=== PATIENT | male | born 1990 | race African-American/Black ===

== ENCOUNTER 2018-12-22 16:59 | Emergency (ER) | payer OTHER ==
[2018-12-22] MEDS ORDERED: Ibuprofen TAB* 600 MG PO ONE (20:37)
--- NOTE | 2018-12-22 20:37 | ED ---
Throat Pain/Nasal Congestion - HPI Summary HPI Summary: 28-year-old male presents with jaw pain today. He states he fell off his top bunk. He denies any loss consciousness. No neck pain. No loose teeth. He was able to eat but is having pain. States it hurts over his TMJ. Denies any nosebleed. No other trauma. Has no medical conditions. He states his bite feels little bit different. - History of Current Complaint Chief Complaint: EDFacialInjury Time Seen by Provider: 12/22/18 19:52 - Allergies/Home Medications Allergies/Adverse Reactions: Allergies Allergy/AdvReac Type Severity Reaction Status Date / Time No Known Allergies Allergy Verified 12/22/18 20:22 Home Medications: Home Medications NK [No Home Medications Reported] 12/22/18 [History Confirmed 12/22/18] PMH/Surg Hx/FS Hx/Imm Hx Endocrine/Hematology History: Denies: Hx Anticoagulant Therapy Respiratory History: Denies: Hx Asthma Infectious Disease History: No Infectious Disease History: Denies: Traveled Outside the [place] in Last 30 Days - Family History Known Family History: Positive: Non-Contributory - Social History Alcohol Use: Daily Substance Use Type: Reports: Marijuana Smoking Status (MU): Light Every Day Tobacco Smoker Review of Systems Negative: Fever Positive: Other - jaw pain Negative: Chest Pain Negative: Shortness Of Breath All Other Systems Reviewed And Are Negative: Yes Physical Exam Triage Information Reviewed: Yes Vital Signs On Initial Exam: Initial Vitals Temp Pulse Resp BP Pulse Ox 98.5 F 48 16 121/81 98 12/22/18 17:04 12/22/18 17:04 12/22/18 17:04 12/22/18 17:04 12/22/18 17:04 Vital Signs Reviewed: Yes Appearance: Positive: Well-Appearing Skin: Positive: Warm, Dry Head/Face: Positive: Normal Head/Face Inspection Eyes: Positive: Normal, EOMI, REI, Conjunctiva Clear ENT: Positive: Normal ENT inspection, Pharynx normal, TMs normal, Other - tenderness over left TMJ and lower jaw Dental: Positive: Other - no loose teeth. Negative: Percussion Tenderness @ Respiratory/Lung Sounds: Positive: Clear to Auscultation, Breath Sounds Present Cardiovascular: Positive: Normal, RRR Abdomen Description: Positive: Nontender, Soft Bowel Sounds: Positive: Present Musculoskeletal: Positive: Normal Neurological: Positive: Normal Psychiatric: Positive: Normal Diagnostics - Vital Signs Vital Signs Temp Pulse Resp BP Pulse Ox 12/22/18 19:09 97.4 F 45 16 114/60 96 12/22/18 17:04 98.5 F 48 16 121/81 98 - Laboratory Lab Statement: Any lab studies that have been ordered have been reviewed, and results considered in the medical decision making process. - CT facial CT Interpretation Completed By: Radiologist Summary of CT Findings: IMPRESSION: Normal mandible and temporomandibular joints. No acute facial bone abnormality. EENT Course/Dx - Course Course Of Treatment: 28-year-old male presents with jaw pain today. He states he fell off his top bunk. He denies any loss consciousness. No neck pain. No loose teeth. He was able to eat but is having pain. States it hurts over his TMJ. Denies any nosebleed. No other trauma. Has no medical conditions. He states his bite feels little bit different. On exam tenderness over TMJ and lower jaw. Normal neuro exam. No loose teeth. CT shows no fracture. Told to have continued pain to follow up with dentist. Patient understands and agrees with plan. - Differential Diagnoses Differential Diagnoses: Fracture, Other - tmj syndrome, loose tooth - Diagnoses Provider Diagnoses: Jaw pain Discharge - Sign-Out/Discharge Documenting (check all that apply): Patient Departure Patient Received Moderate/Deep Sedation with Procedure: No - Discharge Plan Condition: Good Disposition: HOME Referrals: Beti Barkley [Primary Care Provider] - Additional Instructions: CT shows no fracture Follow up with dentist if pain continues apply ice eat softer foods Take tyenlol or ibuprofen every 6 hours for pain Return to ED if develop any new or worsening symptoms - Billing Disposition and Condition Condition: GOOD Disposition: Home
[2018-12-22 20:47] VITALS: BP 118/76
== END 2018-12-22 20:46 | disposition home or self-care (01) ==
LOC: ED 16:59
DX: R68.84 Jaw pain (principal); F17.200 Nicotine dependence, unspecified, uncomplicated
CPT/HCPCS: 70486; 99282; A9270-GY